=== PATIENT | male | born 2000 | race Caucasian/White ===

== ENCOUNTER 2021-05-29 15:51 | Outpatient (CLI) | payer BC, SELFPAY | END 2021-05-29 23:59 | disposition short-term general hospital (02) | LOC: IMMUN 06-04 15:51 | PROVIDERS: Visit Provider Family Medicine | DX: Z23 Encounter for immunization (principal) ==

== ENCOUNTER 2022-02-14 12:00 | Outpatient (RCR) | payer BC, SELFPAY ==
--- NOTE | 2022-01-08 13:14 | HP.PTEVAL ---
Patient's Visit Information LIOR URBINA is a 21 year old M referred to Physical Therapy by GREGG ARREDONDO with a diagnosis of R hip labral repair. Date of Evaluation: 01/01/22 Physical Therapist: Marshall Bailey DPT - Visit Plan Frequency: 2x /Week Duration: 6 Weeks Plan: Start with week 5 of hip protocol. Progress as tolerated. Add in myofascial to R hip musculature as needed. - Subjective Pt. is here today for her initial evaluation with diagnosis of R hip labral repair. Patient had surgery in late November. Pt. could not remember the exact date. Pt. did have therapy at alternate facility, but has moved back to school last week. He is overall doing well, but did fall off a bench into a hold 3 days ago. He was initially sore, but is doing better now. He has been consistent with his exercises at home. Pt. is walking without issues. He does report some soreness with prolonged walking throughout the day and stair negotiation. He reports that he wants to be able to walk without issues and eventually get back to snowboarding without limitations. He is to follow up with physician at [facility] when he returns to [place]. - Pain R hip Pain Intensity (Out of 10): 0 Pain Intensity Range: 0, 3 - Objective POSTURE: Pt. has good posture in stance. No wt. shifting, normal iliac crest heights, symmetrical. PALPATION: Pt. has tenderness along anterior hip, no pain along iliac crest, no quad pain. Slight tenderness along hip flexors, No gluteal pain noted. NEURO: normal DTR of BLEs, normal sensation noted throughout. ROM: R hip: Passive without OP: flexion 115deg, abd 45deg, ext 15deg, ER at 90deg flexion 45deg, IR at 90deg of flexion 25deg. MMT: LLE: knee: flexion 55#, ext 51#; hip: flexion 32#, abd 27#, ext 47#. LLE: knee: ext 49#, flexion 47#; hip: flexion 15#, abd 18#, ext 38#. Core strength: fair. GAIT: Pt. ambulates well without limitations or increase in symptoms. Sit to stand from elevated chair- normal mechanics no issues. - Balance/Special Test Scores Lower Extremity Functional Score: 40 - Goals Goal 1:: LTG: pt. to be I with HEP. Goal Time Frame: 4-6 Weeks Goal 2:: STG: Pt. to have full R hip ROM without increase in symptoms. Goal Time Frame: 2-4 Weeks Goal 3:: STG: Pt. to have hip flexor strength at least 60% of L side. Goal Time Frame: 2-4 Weeks Goal 4:: STG: Pt. to have R hip add, abd, ext, IR, ER strength at least 80% of L LE. Goal Time Frame: 2-4 Weeks Goal 5:: LTG: pt. to have R hip strength at least 85% of LLE with all hip musculature. Goal Time Frame: 6-8 Weeks - Rehabilitation Potential Physical Therapy Diagnosis: Pt. has signs and symptoms consistent with R hip labral repair. He is overall doing well. He does have marked weakness, hypomobility, increased pain with functional activities. He would benefit from PT to address the above limitations progressing back to all recreational and functional activities without limitations. Rehabilitation Potential: Excellent - Anticipated Interventions Patient/Client Instruction: Educate patient on: Condition, Plan of Care, Risk Factors, Benefits of Fitness Program For the Purpose of:: To foster healthy habits, To improve decision making, To improve self management, To prevent re-injury, To improve ability to perform tasks related to life management, To improve tolerance to ADL's Therapeutic Exercise to Include: Strength training, Power training, Coordination, Agility training, Body mechanics, Gait and locomotor training, Passive ROM, Active ROM, Dynamic Lumbar Stabilization For the Purpose of:: To decrease pain, To increase ROM, To improve nutrient delivery to tissue, To increase oxygenation perfusion, To improve muscle performance and motor function, To improve ability to perform ADL's, To increase tolerance to activity/condition/position, To improve performance and independence with ADL's, To improve gait and locomotor functions, To improve health of tissue, To decrease soft tissue restriction, To increase flexibility/ROM Manual Therapy Techniques to Include: Mobilization, Functional dry needling, Soft tissue mobilization For the Purpose of:: To decrease pain, To increase ROM, To improve nutrient delivery to tissue, To increase oxygenation perfusion, To improve muscle performance and motor function Thank you for the opportunity to evaluate your patient. For Medicare and Medicare HMO plans, please review the plan of care and approve it. It will need to be FAXED BACK to us at [phone] for Medicare purposes. For Medicare only, by signing this I certify the plan of care. Please let me know if there are questions or concerns regarding this plan of care. Physician Signature: Date:
--- NOTE | 2022-03-04 11:16 | HP.PTEVAL ---
Patient's Visit Information LIOR URBINA is a 21 year old M referred to Physical Therapy by GREGG ARREDONDO with a diagnosis of R hip labral repair - [birth year]. 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 Lior is okay with this. I want to see him in 3-4 weeks to make sure he is continuing to progress. - Subjective Pt. is here today for her initial evaluation with diagnosis of R hip labral repair. Patient had surgery in late November. Pt. could not remember the exact date. Pt. did have therapy at alternate facility, but has moved back to school last week. He is overall doing well, but did fall off a bench into a hold 3 days ago. He was initially sore, but is doing better now. He has been consistent with his exercises at home. Pt. is walking without issues. He does report some soreness with prolonged walking throughout the day and stair negotiation. He reports that he wants to be able to walk without issues and eventually get back to snowboarding without limitations. He is to follow up with physician at [facility] when he returns to [place]. - Pain R hip Pain Intensity (Out of 10): 0 Pain Intensity Range: 0, 3 Comment: only w/ lateral step out w/ wbing. - Objective POSTURE: Pt. has good posture in stance. No wt. shifting, normal iliac crest heights, symmetrical. PALPATION: Pt. has tenderness along anterior hip, no pain along iliac crest, no quad pain. Slight tenderness along hip flexors, No gluteal pain noted. NEURO: normal DTR of BLEs, normal sensation noted throughout. ROM: R hip: Passive without OP: flexion 115deg, abd 45deg, ext 15deg, ER at 90deg flexion 45deg, IR at 90deg of flexion 25deg. MMT: LLE: knee: flexion 55#, ext 51#; hip: flexion 32#, abd 27#, ext 47#. LLE: knee: ext 49#, flexion 47#; hip: flexion 15#, abd 18#, ext 38#. Core strength: fair. GAIT: Pt. ambulates well without limitations or increase in symptoms. Sit to stand from elevated chair- normal mechanics no issues. - Balance/Special Test Scores Lower Extremity Functional Score: 40 - Goals Goal 1:: LTG: pt. to be I with HEP. Goal Time Frame: 4-6 Weeks Goal 2:: STG: Pt. to have full R hip ROM without increase in symptoms. Goal Time Frame: 2-4 Weeks Goal 3:: STG: Pt. to have hip flexor strength at least 60% of L side. Goal Time Frame: 2-4 Weeks Goal 4:: STG: Pt. to have R hip add, abd, ext, IR, ER strength at least 80% of L LE. Goal Time Frame: 2-4 Weeks Goal 5:: LTG: pt. to have R hip strength at least 85% of LLE with all hip musculature. Goal Time Frame: 6-8 Weeks - Rehabilitation Potential Physical Therapy Diagnosis: Pt. has signs and symptoms consistent with R hip labral repair. He is overall doing well. He does have marked weakness, hypomobility, increased pain with functional activities. He would benefit from PT to address the above limitations progressing back to all recreational and functional activities without limitations. Rehabilitation Potential: Excellent - Anticipated Interventions Patient/Client Instruction: Educate patient on: Condition, Plan of Care, Risk Factors, Benefits of Fitness Program For the Purpose of:: To foster healthy habits, To improve decision making, To improve self management, To prevent re-injury, To improve ability to perform tasks related to life management, To improve tolerance to ADL's Therapeutic Exercise to Include: Strength training, Power training, Coordination, Agility training, Body mechanics, Gait and locomotor training, Passive ROM, Active ROM, Dynamic Lumbar Stabilization For the Purpose of:: To decrease pain, To increase ROM, To improve nutrient delivery to tissue, To increase oxygenation perfusion, To improve muscle performance and motor function, To improve ability to perform ADL's, To increase tolerance to activity/condition/position, To improve performance and independence with ADL's, To improve gait and locomotor functions, To improve health of tissue, To decrease soft tissue restriction, To increase flexibility/ROM Manual Therapy Techniques to Include: Mobilization, Functional dry needling, Soft tissue mobilization For the Purpose of:: To decrease pain, To increase ROM, To improve nutrient delivery to tissue, To increase oxygenation perfusion, To improve muscle performance and motor function Thank you for the opportunity to evaluate your patient. For Medicare and Medicare HMO plans, please review the plan of care and approve it. It will need to be FAXED BACK to us at [phone] for Medicare purposes. For Medicare only, by signing this I certify the plan of care. Please let me know if there are questions or concerns regarding this plan of care. Physician Signature: Date:
== END 2022-02-14 19:00 | disposition home or self-care (01) ==
LOC: PT 12:00
DX: S73.191D Other sprain of right hip, subsequent encounter (principal); X58.XXXD Exposure to other specified factors, subsequent encounter
CPT/HCPCS: 97110; 97161; 97164